=== PATIENT | male | born 1975 | race African-American/Black ===

== ENCOUNTER → 2018-08-21 | Outpatient (CLI) | payer MEDICARE, MEDICAID ==
[~2018-08-21] MED LIST: REGADENOSON 0.4 MG/5 ML IV ONE
== END | disposition home or self-care (01) ==
LOC: NM 08:04
PROVIDERS: ATTEND Internal Medicine Cardiovascular Disease
DX: I10 Essential (primary) hypertension (principal); E11.9 Type 2 diabetes mellitus without complications
CPT/HCPCS: 78452; 93017; A9500; J2785